=== PATIENT | male | born 1960 | race Caucasian/White ===

== ENCOUNTER 2016-05-01 11:17 | Observation (INO) ==
--- NOTE | 2016-05-01 12:34 | History & Physical Report ---
Date of Encounter: 05/01/16 Time of Encounter: 12:19 24 Hour HP Update - Instructions Instructions: If the History and Physical is less than 30 days old and was completed prior to A.M. admission and or procedure and has NOT been updated on calendar day of procedure please complete this update prior to performing procedure. - Update Patient reports changes in Medical Condition: No Changes in assessment/condition: No - Attending Attestation Please refer to Dr. Obie Boyce's office note from 04/27/16 for full H&P. Pt admitted for rythmol initiation for PAF. Anticoagulated on Xarelto, 20mg daily with no missed doses in the past 30 days. Had unsuccessful DCCV recently. HR currently 120s. Will start Cardizem gtt for rate control. Start Rythmol 150mg [id number]. Monitor for 5 doses. Monitor QRS <120ms. Baseline QRS on EKG 04/27/16 was 99ms. QTc 429ms. Negative stress test 07/2015. If DCCV is necessary, no MACHELLE will be needed.
[2016-05-01] MEDS ORDERED: Acetaminophen 325 MG TABLET PO PRN (12:43)
[2016-05-01 13:08] LABS: Basophils # 0.1 K/mcL (0.0-0.2); Basophils % 1.1 %; Eosinophils # 0.1 K/mcL (0.0-0.6); Eosinophils % 1.2 %; Hematocrit 44.2 % (37.5-50.1); Hemoglobin 15.1 g/dL (12.9-16.9); Immature Granulocytes % 0.5 % (0-4); Lymphocytes # 2.4 K/mcL (0.6-4.6); Lymphocytes % 29.7 %; Mean Corpuscular HGB Conc 34.2 g/dL (31.6-35.5); Mean Corpuscular Hemoglobin 28.9 pg (28.0-33.3); Mean Corpuscular Volume 84.5 fL (83.0-100.0); Mean Platelet Volume 10.3 fL (9.4-12.4); Monocytes # 0.7 K/mcL (0.0-1.3); Monocytes % 8.3 %; Neutrophils # 4.8 K/mcL (1.6-8.9); Platelet Count 200 K/mcL (140-400); Red Blood Count 5.23 M/mcL (4.19-5.50); Red Cell Distribution Width 12.6 % (11.5-14.5); Segmented Neutrophils % 59.2 %
[2016-05-01 13:20] LABS: BUN/Creatinine Ratio 17 (6-26); Blood Urea Nitrogen 13 mg/dL (8-26); Calcium 8.9 mg/dL (8.6-10.8); Carbon Dioxide 24 mEq/L (19-29); Chloride 105 mEq/L (98-109); Glucose 87 mg/dL (70-99); Osmolality,Calculated 287 (280-300); Potassium 3.6 mEq/L (3.5-4.5); Sodium 139 mEq/L (136-145); eGFR For African Americans > 60 (> 60); eGFR For Non-African Americans > 60 (> 60)
[2016-05-02] MEDS: Aspirin 81 MG TAB.CHEW PO SCH (07:49)
[2016-05-02] MEDS: *HR* Rivaroxaban 10 MG TABLET PO SCH (07:49)
--- NOTE | 2016-05-02 10:51 | Cardiology Progress Note ---
Date of Encounter: 05/02/16 Time of Encounter: 10:49 Assessment and Plan (1) PAF (paroxysmal atrial fibrillation) Current Visit: Yes Status: Acute Admitted for Rythmol initiation 150mg [id number]. Will need monitored for 5 doses with daily EKGs to monitor QRS. Pt has received 3 Rythmol doses. EKGs reviewed. Baseline EKG obtained yesterday A-Fib rate 87, QRS 104. S/P 1st dose EKG A-Fib rate 84, QRS 118. S/P 2nd dose EKG A-Fib rate 84, QRS 107. Pt currently on Cardizem gtt at 2.5mg/hr for A-Fib with RVR yesterday. 12 hour tele AVG HR 88. Will stop Cardizem gtt and transition to PO Cardizem CD 240mg daily. NPO after midnight. If pt does not convert to SR, plan for DCCV in AM. No MACHLELE needed--no missed doses of Xarelto in past 30 days. Possible D/C home tomorrow if he converts. 5th dose of Rythmol will be tonight. (2) Encounter for monitoring anti-arrhythmic therapy Current Visit: Yes Status: Acute Plan as above. Rythmol 150mg Q8hrs. Monitor daily EKGs for QRS <120ms. (3) Hypertension Current Visit: No Status: Acute Currently controlled. Qualifiers: Hypertension type: essential hypertension Qualified Code(s): I10 - Essential (primary) hypertension (4) Sleep apnea Current Visit: No Status: Acute On CPAP. Qualifiers: Sleep apnea type: unspecified type Qualified Code(s): G47.30 - Sleep apnea , unspecified Discussion w patient/family: The assessment and plan as outlined above was discussed with the patient and/or family members who expressed understanding and agreement. All questions were answered. Thank you for involving us in the care of your patient. Please call with any questions. I will discuss all the above with Dr. Kearney and Dr. Obie Boyce and make changes as necessary. Subjective Principal diagnosis: PAF, antiarrhythmic initiation Interval history: Pt has received 3 rythmol doses. Remains in A-Fib. On Cardizem gtt at 2.5mg/hr. 12 hour tele AVG HR 88, A-Fib. EKGs reviewed. QRS remains <120ms. Pt denies any acute complaints. Objective Vital Signs, Last 4 Hours Temp Pulse Resp BP Pulse Ox 05/02/16 06:57 97.6 F 75 18 128/94 98 Vital Signs Temp Pulse Resp BP Pulse Ox 05/02/16 06:57 97.6 F 75 18 128/94 98 05/02/16 05:35 72 135/96 05/02/16 05:15 76 136/101 05/02/16 03:27 97.5 F L 76 17 131/93 98 05/01/16 21:04 98 05/01/16 19:02 98.0 F 89 16 149/94 98 05/01/16 15:30 98.3 F 69 16 153/102 99 05/01/16 12:41 98 F 101 16 155/127 98 05/01/16 12:14 103 H Intake and Output 05/01/16 05/02/16 05/02/16 23:59 07:59 15:59 Intake Total 220 / 220 125 / 125 360 / 360 Output Total 530 / 530 380 / 380 100 / 100 Balance -310 / -310 -255 / -255 260 / 260 Intake: IV Fluids 125 / 125 Cardizem 125 MG In 125 / 125 Dextrose 5% 100 ML @ 5 MG /HR 5 mls/hr IVC .Q24H MARÍA Rx#:[id number] Oral 220 / 220 360 / 360 Output: Urine 530 / 530 380 / 380 100 / 100 Other: Meal Dinner Breakfast Percent of Meal Consumed 100% 100% General: Conversant, No Apparent Distress HEENT: Atraumatic, Normocephaly, Mucus Membranes Moist Neck: No JVD, Normal carotid pulses Cardiac: Other (irregularly irregular) Lungs: Normal Breath Sounds, No Wheeze, Rales, Rhonchi Neuro: Alert and responsive, No focal deficits noted Abdomen: Soft, Non-Tender Skin: No rashes noted on visualized skin Musculoskeletal: No Chest Wall Tenderness Extremities: No Clubbing, No Cyanosis, No Edema, Normal Pulses Results 05/01/16 12:50 05/01/16 12:50 Lab Results 05/01/16 05/01/16 12:50 12:50 WBC 8.1 Hgb 15.1 Hct 44.2 Plt Count 200 Sodium 139 Potassium 3.6 Chloride 105 Carbon Dioxide 24 BUN 13 Creatinine 0.75 Glucose 87 Calcium 8.9 Active Medications Acetaminophen (Tylenol) 325 mg PO Q6HR PRN PRN Reason: pain Stop: 10/31/16 12:44 Aspirin (Aspirin) 81 mg PO DAILY [facility] Stop: 11/01/16 09:01 Last Admin: 05/02/16 07:49 Dose: 81 mg Diltiazem HCl (Cardizem Cd) 240 mg PO DAILY [facility] Stop: 11/01/16 11:01 Propafenone HCl (Rhythmol) 150 mg PO Q8HR MAR[facility]A Stop: 10/31/16 16:01 Last Admin: 05/02/16 07:49 Dose: 150 mg Rivaroxaban (Xarelto) 20 mg PO DAILY [facility] Stop: 11/01/16 09:01 Last Admin: 05/02/16 07:49 Dose: 20 mg - EKG Interpretation EKG results cardiology: other (12 hour tele AVG HR 88-A-Fib.) - VTE Reasons for not Prescribing Prophylaxis: Not indicated-Anticoagulated or INR therapeutic Consult Discharge Plan - Plan Referrals: Obie Boyce MD [Partnered Physician] - 05/17/16 12:15 pm Zechariah Rosario M.D. [Primary Care Provider] -
[2016-05-02] MEDS ORDERED: Diltiazem CD (24hr) 240 MG CAPSULE PO SCH (11:00)
[2016-05-02] MEDS ORDERED: Diltiazem CD (24hr) 120 MG CAPSULE PO ONE (14:04)
[2016-05-02] MEDS: Metoprolol XL (24 HR) Succ 50 MG TAB.ER.24H PO SCH (16:02)
--- NOTE | 2016-05-02 21:07 | Electrocardiograph Report ---
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
--- NOTE | 2016-05-02 21:20 | Electrocardiograph Report ---
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
--- NOTE | 2016-05-02 21:28 | Electrocardiograph Report ---
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
--- NOTE | 2016-05-02 21:30 | Electrocardiograph Report ---
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
[2016-05-03] MEDS: Metoprolol XL (24 HR) Succ 50 MG TAB.ER.24H PO SCH (08:33)
[2016-05-03] MEDS: *HR* Rivaroxaban 10 MG TABLET PO SCH (08:34)
[2016-05-03] MEDS: Aspirin 81 MG TAB.CHEW PO SCH (08:35)
[2016-05-03] MEDS ORDERED: Diltiazem CD (24hr) 120 MG CAPSULE PO SCH (09:00)
--- NOTE | 2016-05-03 09:01 | Event Note ---
Date of Encounter: 05/03/16 Time of Encounter: 08:59 - Cardiology Event Note Pt remains in A-Fib. Rythmol dose held last night for HR 40s. HR now 70s. Toprol XL stopped. Continue Rythmol and Cardizem. 5th dose received this AM. Plan for DCCV today--no MACHELLE necessary, has been on Xarelto >30 days with no missed doses.
[2016-05-03] MEDS ORDERED: *HR* Midazolam HCl 2 MG/2 ML VIAL ONE ×2 (10:02→10:04)
[2016-05-03] MEDS ORDERED: *HR* FentaNYL (PF) 100 MCG/2 ML VIAL ONE (10:03)
[2016-05-03] MEDS ORDERED: 0.9 % Sodium Chloride 1,000 ML ONE (10:15)
--- NOTE | 2016-05-03 12:31 | Discharge Summary ---
Date of Encounter: 05/03/16 Time of Encounter: 12:29 - Discharge Diagnosis (1) PAF (paroxysmal atrial fibrillation) Priority: Primary Status: Acute Comments: Admitted for Rythmol initiation 150mg [id number]. Pt remained in A-Fib after 5 doses--attempted DCCV this AM unsuccessful. 3 shocks, pt would go into SR for approximately 5 seconds, then return to A-Fib. Pt wishes to have rate control and make lifestyle modifications. No interested in staying for Rythmol increase or trying a different antiarrhythmic. HR currently 50s-60s A-Fib, so will discontinue his Toprol XL. He has been instructed to monitor HR at home and if >100, resume Toprol. Anticoagulated on Xarelto. Follow-up with cardiology in 2 weeks. (2) Encounter for monitoring anti-arrhythmic therapy Priority: Primary Status: Acute Comments: As above, unsuccessful on Rythmol 150mg [id number]. Stopping antiarrhythmic, d/c home with rate control strategy. (3) Hypertension Priority: Primary Status: Chronic Comments: Controlled. Qualifiers: Hypertension type: essential hypertension Qualified Code(s): I10 - Essential (primary) hypertension (4) Sleep apnea Priority: Secondary Status: Acute Comments: Uses CPAP. Qualifiers: Sleep apnea type: unspecified type Qualified Code(s): G47.30 - Sleep apnea , unspecified - Discharge Medications Home Medications: Aspirin 81 mg PO DAILY 14 Days 12/25/14 [Rx] Rivaroxaban [Xarelto] 20 mg PO DAILY #14 tablet 12/25/14 [Rx] Diltiazem HCl [Diltiazem 24Hr Cd] 360 mg PO DAILY 05/01/16 [History] Allergies/Adverse Reactions: Allergies No Known Allergies Allergy (Verified 12/22/14 06:54) Procedures/tests Complete & Pending: Procedures Performed prior 72 hours Category Date Time Status ECG 12 lead ECG [ECG] Routine Y 05/01/16 19:14 Completed ECG 12 lead ECG [ECG] Routine Y 05/02/16 01:57 Completed ECG 12 lead ECG [ECG] Routine Y 05/02/16 10:08 Completed EKG [ECG 12 lead ECG] [ECG] Routine Y 05/01/16 12:38 Completed EV cardioversion Routine Y 05/03/16 08:05 Ordered Date of admission: 05/01/16 11:17 Primary care physician: Zechariah Rosario M.D. Discharging clinician: Matt Bennett Anticipated date of discharge: 05/03/16 - Patient Status Disposition: Home, Self-Care Condition: Good Functional capacity at discharge: independent ambulation Overall status at discharge: patient is back to baseline - Discharge Instructions Follow Up With: Obie Boyce MD [Partnered Physician] - 05/17/16 12:15 pm Marlene Shirley,Zechariah [Primary Care Provider] - 05/11/16 2:45 pm - Diet and Activity Activity: increase activity as tolerated Diet: low fat, low cholesterol, low salt diet - Hospital Course Hospital course: Mr. Mahajan is a 55 year old male admitted for Rythmol initiation for PAF. Pt remained in A-Fib after 5 doses--attempted DCCV this AM unsuccessful. 3 shocks, pt would go into SR for approximately 5 seconds, then return to A-Fib. Pt wishes to have rate control and make lifestyle modifications. No interested in staying for Rythmol increase or trying a different antiarrhythmic. HR currently 50s-60s A-Fib, so will discontinue his Toprol XL. He has been instructed to monitor HR at home and if >100, resume Toprol. Anticoagulated on Xarelto. Follow-up with cardiology in 2 weeks. - Time Spent with Patient Total time spent providing and/or coordinating discharge services: 30 minutes. Physical Examination Vital Signs Temp Pulse Resp BP Pulse Ox 05/03/16 08:07 98 F 71 16 137/97 97 05/03/16 05:19 97.4 F L 71 18 99/74 96 05/02/16 19:30 132/98 05/02/16 18:52 97.8 F 71 15 140/109 97 05/02/16 15:37 98.1 F 83 16 153/95 96 Intake and Output 05/02/16 05/03/16 05/03/16 23:59 07:59 15:59 Intake Total 240 / 240 0 / 0 0 / 0 Output Total 200 / 200 Balance 240 / 240 -200 / -200 0 / 0 Intake: Oral 240 / 240 0 / 0 0 / 0 Output: Urine 200 / 200 Other: Meal Dinner Breakfast Percent of Meal Consumed 100% 0% # Voids 1 Weight 131.3 kg Patient Weight 05/03/16 23:59 Weight 131.3 kg General: Conversant, No Apparent Distress HEENT: Atraumatic, Normocephaly, Mucus Membranes Moist Neck: No JVD, Normal carotid pulses Cardiac: Other (irregularly irregular) Lungs: Normal Breath Sounds, No Wheeze, Rales, Rhonchi Neuro: Alert and responsive, No focal deficits noted Abdomen: Soft, Non-Tender Skin: No rashes noted on visualized skin Musculoskeletal: No Chest Wall Tenderness Extremities: No Clubbing, No Cyanosis, No Edema, Normal Pulses - VTE Reasons for not Prescribing Prophylaxis: Not indicated-Anticoagulated or INR therapeutic
[2016-05-03 15:16] VITALS: BP 116/80
--- NOTE | 2016-05-03 15:52 | ECHO - Doppler Report ---
Cardioversion Name: Fracisco Mahajan Date of Study: 05/03/2016 Date: 1960 Ht: 70.0in Medical Record#: [id number] Age: 55 Wt: 289.0lb Gender: Male BSA: 2.44 Order #: [id number] Location: [facility] Room #: 2NE27 Reading Physician: Joseph Rosario DO, FACC, FASE, FASNC Die Technician: Ordering Physician: Matt Bennett CNP Primary Physician: Zechariah Rosario MD Indications: Atrial Fibrillation Findings: Unsuccessful synchronized electrical cardioversion utilizing 200, 250, and 360 Joules. Procedure Details: Following informed consent, the patient was sedated with versed and fentanyl. After adequate sedation was achieved, cardioversion in the AP approach was unsuccessful despite 3 attempts (200, 250, 360 Joules). After each attempt, patient briefly demonstrated sinus rhythm, but quickly returned to atrial fibrillation. The patient was monitored for the standard 30 minutes post procedure. No neurological deficits were noted. Medication Given: Time Medication Dose Units Route 10:31 Versed 2 mg IV 10:31 Fentanyl 50 mcg IV 10:34 Versed 2 mg IV 10:34 Fentanyl 25 mcg IV 10:37 Versed 2 mg IV 10:37 Fentanyl 25 mcg IV Complications: Arrhythmia History: Hypertension Hypercholesteremia Family History of CAD Previous Echo12/22/2014 BP 166 / 114 Updated by Joseph Rosario DO, FACC, FASE, FASNC on 05/03/2016 3:44:47 PM
--- NOTE | 2016-05-05 15:23 | Electrocardiograph Report ---
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
--- NOTE | 2016-05-05 15:25 | Electrocardiograph Report ---
[place] [id number] Test Date: 2016-05-03 Pat Name: Fracisco Mahajan Department: 111 Room: 2N7 Gender: M Director Of Individual Giving: : 1960 Requested By: Obie Boyce Order Number: [id number] Reading MD: Lillie Boyce Measurements Intervals [place] Rate: 87 P: [place]: 0 QRS: 56 QRSD: 94 T: 9 QT: 355 QTc: 399 Interpretive Statements ATRIAL FIBRILLATION INCOMPLETE RIGHT BUNDLE BRANCH BLOCK ABNORMAL RHYTHM ECG Electronically Signed On 05-05-2016 15:23:04 EST by Lillie Boyce
== END 2016-05-03 15:42 | disposition home or self-care (01) ==
LOC: INTOOBSV 11:17 → 2NENU 11:17
PROVIDERS: ADMIT Internal Medicine Clinical Cardiac Electrophysiology; ATTEND Internal Medicine Clinical Cardiac Electrophysiology